=== PATIENT | female | born 1955 | race Hispanic/Latino ===

== ENCOUNTER 2024-11-01 10:12 | Emergency (ER) | payer OTHER ==
[~2024-11-01] VITALS: Ht 157.5 cm; Wt 76.7 kg
[2024-11-01 10:52] LABS: BASOPHILS # (AUTO) 0.06 K/uL (0.00-0.20); BASOPHILS % (AUTO) 0.6 % (0.0-5.0); EOSINOPHILS # (AUTO) 0.06 K/uL (0.00-0.70); EOSINOPHILS % (AUTO) 0.6 % (0.0-8.0); HEMATOCRIT 43.9 % (36-48); IMMATURE GRANULOCYTE ABSOLUTE 0.02 K/uL (0-1); LYMPHOCYTES # (AUTO) 2.9 K/uL (1.0-4.8); LYMPHOCYTES % (AUTO) 29.7 % (21.0-51.0); MEAN CORPUSCULAR HEMOGLOBIN 30.1 pg (27.0-33.0); MEAN CORPUSCULAR VOLUME 91.1 fL (79-99); MONOCYTES # (AUTO) 0.5 K/uL (0.1-1.0); MONOCYTES % (AUTO) 4.8 % (3.0-13.0); NEUTROPHILS # (AUTO) 6.1 K/uL (1.8-7.7); NEUTROPHILS % (AUTO) 64.1 % (40.0-77.0); PLATELET COUNT (AUTO) 238 K/uL (130-400); RED BLOOD CELL COUNT(AUTO) 4.82 MIL/uL (4.00-5.50); RED CELL DISTRIBUTION WIDTH 13.2 % (11.0-15.5); WHITE BLOOD COUNT (AUTO) 9.6 K/uL (4.8-10.8)
--- NOTE | 2024-11-01 11:06 | HMCIMG ---
Exam Type: CHEST 1VW Clinical Information: CP Comparison: None Findings: The lungs are clear of infiltrates. The heart is normal in size. The bony and soft tissue structures of the chest are unremarkable. Impression: Clear lungs.
[2024-11-01 11:07] LABS: CREATININE 0.7 mg/dL (0.5-1.0); MAGNESIUM 2.2 mg/dL (1.80-2.40)
[2024-11-01 11:09] LABS: INR 0.98 (0.85-1.15); PROTHROMBIN TIME 10.4 SEC (9.6-11.6)
[2024-11-01 11:10] LABS: PARTIAL THROMBOPLASTIN TIME 26.8 SEC (26.3-35.5)
[2024-11-01] MEDS: LACTATED RINGERS 1000ML 1,000 ML IV ONE (11:12)
[2024-11-01] MEDS: DiphenhydrAMINE HCL 50 MG/ML VIAL IV ONE (11:24)
[2024-11-01] MEDS: 0.9%NACL 1000ML 1,002 ML IV ONE (11:24)
[2024-11-01] MEDS: PROCHLORPERAZINE 10MG/2ML INJ IV ONE (11:24)
--- NOTE | 2024-11-01 11:30 | ERN ---
General Chief Complaint: Hypertension Stated Complaint: HTN Time Seen by MD: 10:16 Source: patient History of Present Illness Initial Comments PATIENT IS A 69-YEAR-OLD FEMALE COMING IN TO BE EVALUATED FOR HEADACHE. PER PATIENT SHE HAS BEEN HAVING ELEVATED BLOOD PRESSURE FOR ONE WEEK. PATIENT ALSO STATES THAT SHE HAS A HISTORY OF SINUSITIS AND FREQUENTLY PRESENTS WITH FACIAL D ISCOMFORT. PRIOR TO THIS SHE HAD NEVER HAD ELEVATED BLOOD PRESSURE IN HIS WHY SHE WAS HERE CONCERNED. Allergies: Coded Allergies: No Known Drug Allergies (Unverified Allergy, Unknown, 11/01/24) Past Medical History Past Medical History: No Pertinent History Past Surgical History: Tonsillectomy, Other Surgical History Other: TUBAL LIGATION ROS Dictation CONSTITUTIONAL: NO CHILLS, NO FEVER, NO WEAKNESS, NO DIAPHORESIS, NO MALAISE. HEAD/FACE: NO SIGNS OF TRAUMA. EENT: NO EYE PAIN, NO BLURRED VISION, NO TEARING, NO DOUBLE VISION, NO EAR PAIN, NO EAR DISCHARGE, NO NOSE PAIN, NO NASAL CONGESTION, NO THROAT PAIN, NO THROAT SWELLING, NO MOUTH PAIN. RESPIRATORY: NO COUGH, NO ORTHOPNEA, NO SOB, NO STRIDOR, NO WHEEZING. CARDIOVASCULAR: NO CHEST PAIN, NO EDEMA, NO PALPITATIONS, NO SYNCOPE. GASTROINTESTINAL/ABDOMINAL: NO ABDOMINAL PAIN, NO CONSTIPATION, NO DIARRHEA, NO NAUSEA, NO VOMITING. GENITOURINARY: NO ABNORMAL DISCHARGE, NO DYSURIA, NO FREQUENT URINATION, NO HEMATURIA. NO COMPLAINTS OF PAIN IN THE GENITALS. MUSCULOSKELETAL: NO BACK PAIN, NO GOUT, NO JOINT PAIN, NO JOINT SWELLING, NO MUSCLE PAIN, NO MUSCLE STIFFNESS, NO NECK PAIN. INTEGUMENTARY: NO CHANGE IN COLOR, NO CHANGE IN HAIR/NAILS, NO DRYNESS, NO LESION, NO LUMPS, NO RASH. NEUROLOGICAL/PSYCH: NO ANXIETY, NOT DEPRESSED, NO EMOTIONAL PROBLEM, NO HEADACHE, NO NUMBNESS, NO PRE-EXISTING DEFICIT, NO HISTORY OF SEIZURES, NO TREMORS, NO WEAKNESS. HEMATOLOGIC/LYMPHATIC: NOT ANEMIC, NO HISTORY OF BLOOD CLOTS, NO APPARENT BLEEDING, NO BRUISING, GLANDS NOT SWOLLEN. ALL SYSTEMS NEGATIVE, EXCEPT NOTED. Physical Exam Physical Exam Dictation VITAL SIGNS: REVIEWED. GENERAL APPEARANCE: ALERT, ORIENTED X3, NO ACUTE DISTRESS, OBESE. HEAD AND FACE: NON-TRAUMATIC. EYES: PERRL, PINK CONJUNCTIVAS, EYELID NO TRAUMA, ANTERIOR CHAMBER CLEAR. EARS: PINNAS INTACT AND NO SIGNS OF TRAUMA OR ERYTHEMA. EAR CANALS CLEAR AND NO DISCHARGE. TMS NO ERYTHEMA. NOSE: NO DISCHARGE, NO BLEEDING. OROPHARYNX: MOUTH NORMAL, TEETH NO CARIES, TONGUE PINK. PHARYNX CLEAR, NO ERYTHEMA. TONSILS NO EXUDATES, NO ABSCESSES NOTED. MUCOUS MEMBRANE MOIST. NECK: SUPPLE, NON-TENDER, NO THYROMEGALY, NO MASSES, NO JVD, NO BRUITS. BREAST: DEFERRED. CHEST: NO TENDERNESS, NO CREPITUS, NO PARADOXICAL MOVEMENT, NO RETRACTIONS. LUNGS: CLEAR, WELL-VENTILATED, SYMMETRIC, NO RALES, NO WHEEZING, NO RHONCHI, NO STRIDOR, GOOD BREATH SOUNDS BILATERALLY. HEART: REGULAR RATE, REGULAR RHYTHM, NO MURMUR, NO GALLOPS. VASCULAR: NO PERIPHERAL EDEMA. ABDOMEN: SOFT, POSITIVE BOWEL SOUNDS, NONDISTENDED, NO GUARDING, NONTENDER, NO REBOUND, NO MASSES NO HEPATOMEGALY, NO SPLENOMEGALY, NO ECHEVERRIA'S SIGN, NO HERNIAS. RECTAL: DEFERRED. GENITAL: DEFERRED. NEUROLOGICAL: NORMAL SPEECH, GROSS MOTOR FUNCTION INTACT, GROSS SENSORY FUNCTION INTACT. MUSCULOSKELETAL: NECK NONTENDER, FULL RANGE OF MOTION, BACK NONTENDER, FULL RANGE OF MOTION. EXTREMITIES: NONTENDER, FULL RANGE OF MOTION. SKIN: COLOR PINK, DRY, NO TURGOR, NO RASH, NO LACERATIONS, NO ABRASIONS, NO CONTUSIONS. LYMPHATICS: DEFERRED. Results Laboratory and Microbiology Lab and Micro Result Laboratory Tests Test 11/01/24 10:46 White Blood Count 9.6 K/uL (4.8-10.8) Red Blood Count 4.82 MIL/uL (4.00-5.50) Hemoglobin 14.5 g/dL (12.0-16.0) Hematocrit 43.9 % (36-48) Mean Corpuscular Volume 91.1 fL (79-99) Mean Corpuscular Hemoglobin 30.1 pg (27.0-33.0) Mean Corpuscular Hemoglobin Concent 33.0 g/dL (32.0-36.0) Red Cell Distribution Width 13.2 % (11.0-15.5) Platelet Count 238 K/uL (130-400) Mean Platelet Volume 10.7 fL (7.5-10.5) H Immature Granulocyte % (Auto) 0.2 % (0-1) Neutrophils (%) (Auto) 64.1 % (40.0-77.0) Lymphocytes (%) (Auto) 29.7 % (21.0-51.0) Monocytes (%) (Auto) 4.8 % (3.0-13.0) Eosinophils (%) (Auto) 0.6 % (0.0-8.0) Basophils (%) (Auto) 0.6 % (0.0-5.0) Neutrophils # (Auto) 6.1 K/uL (1.8-7.7) Lymphocytes # (Auto) 2.9 K/uL (1.0-4.8) Monocytes # (Auto) 0.5 K/uL (0.1-1.0) Eosinophils # (Auto) 0.06 K/uL (0.00-0.70) Basophils # (Auto) 0.06 K/uL (0.00-0.20) Absolute Immature Granulocyte (auto 0.02 K/uL (0-1) Nucleated Red Blood Cells 0.0 % (0.0-0.19) Prothrombin Time 10.4 SEC (9.6-11.6) Prothromb Time International Ratio 0.98 (0.85-1.15) Activated Partial Thromboplast Time 26.8 SEC (26.3-35.5) Sodium Level 141 mmol/L (136-145) Potassium Level 4.0 mmol/L (3.5-5.1) Chloride Level 104 mmol/L (101-111) Carbon Dioxide Level 28 mmol/L (21-32) Blood Urea Nitrogen 13 mg/dL (7-18) Creatinine 0.7 mg/dL (0.5-1.0) Glomerular Filtration Rate Calc 94 mL/min (>90) Random Glucose 107 mg/dL (70-105) H Total Calcium 9.2 mg/dL (8.5-10.1) Magnesium Level 2.20 mg/dL (1.80-2.40) Total Creatine Kinase 85 U/L (21-232) Troponin I High Sensitivity 6 ng/L (4-50) B-Type Natriuretic Peptide 42 pg/mL (0-100) Labs Reviewed?: Yes EKG/XRAY/US/CT/MRI EKG Comment 11/01/2024 TIME 10:01 A.M. VENTRICULAR RATE 61 SINUS RHYTHM IN [address] WAVE ELEVATION OR DEPRESSION X-RAY Comment [facility] [address] [place] [id number] IMAGING REPORT Signed PATIENT: SLY VUONG MR#: [id number] : 1955 SEX: F AGE: 69 LOCATION: EDH ORDER 1024 STATUS: REG ER REPORT#: [id number] SERVICE 1023 REASON: CP ORDERING PHYSICIAN: CHERYL HERNANDEZ MD PROCEDURE: CXR1VW - CHEST 1VW Exam Type: CHEST 1VW Clinical Information: CP Comparison: None Findings: The lungs are clear of infiltrates. The heart is normal in size. The bony and soft tissue structures of the chest are unremarkable. Impression: Clear lungs. DICTATED BY: ANDREA DOWNING MD DATE: 11/01/24 110 ELECTRONICALLY SIGNED BY: ANDREA DOWNING MD DATE: 11/01/[address] Scan Comment [place] [address] [id number] IMAGING REPORT Signed PATIENT: SLY VUONG MR#: [id number] : 1955 SEX: F AGE: 69 LOCATION: ED ORDER 1156 STATUS: REG ER REPORT#: [id number] SERVICE 1151 REASON: HEADACHE ORDERING PHYSICIAN: CHERYL HERNANDEZ MD PROCEDURE: HEAD WO - CT HEAD/BRAIN W/O CONTRAST Exam Type: CT HEAD/BRAIN W/O CONTRAST Clinical Information: HEADACHE Comparison: None CT Dose Index (CTDI): 57.33 mGy Dose Length Product (DLP): 956.79 total mGy-cm Findings: The examination is unremarkable. Hurt-white matter junction is preserved. No intra or extra axial lesions or fluid collections are seen. Specifically, hurt and white matter are normal in signal characteristics with normal caliber of ventricles and periventricular cisterns with no evidence of intra or or extra-axial hemorrhage, lacunar infarct, or major territorial infarct, mass, or other abnormality. There are no infarcts. There are no hemorrhages. Periventricular white matter locations are preserved. The orbital contents and structures of the posterior fossa are intact. Impression: Normal CT of the head. This study was performed using dose reduction techniques to include automated exposure control and/or adjustment of the mA and/or kV according to patient size. DICTATED BY: ANDREA DOWNING MD DATE: 11/01/24 1231 ELECTRONICALLY SIGNED BY: ANDREA DOWNING MD DATE: 11/01/[address] [facility] MDM: DIFFERENTIAL DIAGNOSIS: TENSION HEADACHE, SINUSITIS, RATIONALE: TESTS CONSIDERED AND ORDERED SECONDARY TO SHARED DECISION MAKING INCLUDE: PREVIOUS OUTSIDE RECORDS REVIEWED: OLD ER VISITS. RISK OF COMPLICATION AND/OR MORBIDITY OR MORTALITY OF PATIENT MANAGEMENT: NONE PATIENT IS A 69-YEAR-OLD FEMALE COMING IN TO BE EVALUATED FOR ELEVATED BLOOD PRESSURE. LABORATORY WORKUP NEGATIVE FOR ACUTE FINDINGS. PATIENT ALSO STATED THAT SHE HAS BEEN HAVING HEADACHES CT WAS PERFORMED DUE TO THE INCREASED SEVERITY OF THE HEADACHE. THIS DID NOT DISCLOSE ACUTE FINDINGS. PATIENT WILL BE DISCHARGED IN STABLE CONDITION WITH A DIAGNOSIS OF TENSION HEADACHE WITH SINUSITIS. DID ADVISED HER APPROPRIATE FOLLOW UP WITH PCP IN 1-2 DAYS. ED Course Orders Procedure Category Date Status Time Cbc With Differential LAB 11/01/24 Complete 10:23 Prothrombin Time With LAB 11/01/24 Complete INR 10:23 B-Type Natriuretic LAB 11/01/24 Complete Peptide 10:23 Chest 1vw RAD 11/01/24 Resulted 10:23 12 Lead Ekg Tracing- EKG 11/01/24 Complete Technical 10:23 Lactated Ringers PHA 11/01/24 Complete 1000ml (Lactated 10:30 Magnesium LAB 11/01/24 Complete 10:23 Creatine Kinase, Total LAB 11/01/24 Complete 10:23 Troponin I High LAB 11/01/24 Complete Sensitivity 10:23 Urinalysis Profile LAB 11/01/24 Logged 10:23 Partial LAB 11/01/24 Complete Thromboplastin Time 10:23 Basic Metabolic Panel LAB 11/01/24 Complete 10:23 Diphenhydramine Hcl PHA 11/01/24 Complete (Benadryl Inj) 11:00 Prochlorperazine PHA 11/01/24 Complete 10mg/2ml Inj 11:00 0.9%Nacl 1000ml (Ns PHA 11/01/24 In Process 1000ml) 11:00 Clonidine Hcl 0.2 Mg PHA 11/01/24 Complete Tablet (Catapres 0. 12:00 Ct Head/Brain W/O CT 11/01/24 Resulted Contrast 11:54 Current Medications Medications (Trade) Dose Ordered Sig/Jose Route PRN Reason Start Time Stop Time Status Last Admin Dose Admin Clonidine HCl (CATApres 0.2 MG TAB) 0.2 mg ONCE ONCE PO 11/01/24 12:00 11/01/24 12:01 DC 11/01/24 12:22 Diphenhydramine HCl (BENAdryl INJ) 25 mg ONCE ONCE IV 11/01/24 11:00 11/01/24 11:13 DC 11/01/24 11:24 Lactated Ringer's 1,000 ml @ 0 mls/hr ONCE ONCE IV 11/01/24 10:30 11/01/24 10:31 DC 11/01/24 11:12 Prochlorperazine Edisylate (Compazine 10mg/ 2ml Inj) 10 mg ONCE ONCE IV 11/01/24 11:00 11/01/24 11:13 DC 11/01/24 11:24 Sodium Chloride 1,002 ml @ 334 mls/hr ONCE ONCE IV 11/01/24 11:00 11/01/24 13:59 11/01/24 11:24 Vital Signs Date Time Temp Pulse Resp B/P (MAP) Pulse Ox O2 Delivery O2 Flow Rate FiO2 11/01/24 12:22 86 196/78 11/01/24 12:00 98.2 62 12 171/74 97 Room Air* 0 11/01/24 10:48 97.9 64 16 198/73 100 Room Air* 0 11/01/24 10:16 97.9 73 16 209/88 98 Room Air DX & DISP Disposition: Discharge Departure Impression: Primary Impression: Tension headache Additional Impressions: Sinusitis, Elevated blood pressure reading Condition: Stable Scripts Clonidine HCl (Clonidine HCl) 0.1 Mg Tablet 0.1 MG PO BID PRN for IF SBP GREATER THAN 180 for 5 Days, #10 TAB Prov: CHERYL HERNANDEZ MD 11/01/24 Diclofenac Sodium (Voltaren Arthritis Pain) 1 % Gel..gram. 4 GM TP BID for 7 Days, #1 TUBE Prov: CHERYL HERNANDEZ MD 11/01/24 Additional Instructions: FOLLOW-UP WITH PRIMARY CARE PROVIDER IN 1 TO 2 DAYS. TAKE MEDICATIONS DIRECTED HERE IN THE EMERGENCY ROOM. OKAY TO CONTINUE HOME MEDICATIONS UNLESS OTHERWISE DISCUSSED DURING YOUR VISIT IN THE EMERGENCY ROOM TODAY. RETURN TO YOUR NEAREST EMERGENCY ROOM IF SYMPTOMS WORSEN OR IF THERE IS NO IMPROVEMENT. CALL 911 IF YOU NEED IMMEDIATE ASSISTANCE. TAKE TYLENOL [id number] NEEDED AND IF NO CONTRAINDICATIONS ARE PRESENT. INCREASE ORAL HYDRATION. A WOUND CULTURE OR URINE CULTURE WAS ORDERED HERE IN THE EMERGENCY ROOM DEPARTMENT PLEASE FOLLOW-UP WITH PRIMARY CARE PROVIDER AND ADVISE THEM TO GET REPEAT PORTS FROM OUR FACILITY. IF YOU HAD ANY ROBIN WRAP/SPLINTS THAT WERE APPLIED HERE, PLEASE DO NOT REMOVE THEM UNTIL YOU SEE YOUR PRIMARY CARE OR SPECIALTY. REFERRALS: Referrals: SELF,REFERRAL (PCP) JIMENA HURTADO MD Time of Disposition: 13:14 CHERYL HERNANDEZ MD Nov 01, 2024 11:30
[2024-11-01 11:33] LABS: B-TYPE NATRIURETIC PEPTIDE 42 pg/mL (0-100)
--- NOTE | 2024-11-01 11:42 | EKG ---
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
[2024-11-01 12:00] VITALS: RESP 12; TEMP 98.2; O2SAT 97
--- NOTE | 2024-11-01 12:00 | NUR ---
PLACED 20G RIGHT ANTECUBITAL
--- NOTE | 2024-11-01 12:00 | NUR ---
COLLECTED BLOOD SAMPLES.
[2024-11-01 12:22] VITALS: BP 196/78; PULSE 86
[2024-11-01] MEDS: cloNIDine HCL 0.2 MG TABLET PO ONE (12:22)
--- NOTE | 2024-11-01 12:33 | HMCIMG ---
Exam Type: CT HEAD/BRAIN W/O CONTRAST Clinical Information: HEADACHE Comparison: None CT Dose Index (CTDI): 57.33 mGy Dose Length Product (DLP): 956.79 total mGy-cm Findings: The examination is unremarkable. Hurt-white matter junction is preserved. No intra or extra axial lesions or fluid collections are seen. Specifically, hurt and white matter are normal in signal characteristics with normal caliber of ventricles and periventricular cisterns with no evidence of intra or or extra-axial hemorrhage, lacunar infarct, or major territorial infarct, mass, or other abnormality. There are no infarcts. There are no hemorrhages. Periventricular white matter locations are preserved. The orbital contents and structures of the posterior fossa are intact. Impression: Normal CT of the head. This study was performed using dose reduction techniques to include automated exposure control and/or adjustment of the mA and/or kV according to patient size.
[2024-11-01] MEDS ORDERED: CLON0.1T PO (13:15)
[2024-11-01] MEDS ORDERED: DICL20GE TP (13:15)
--- NOTE | 2024-11-01 13:25 | NUR ---
DISCONTINUED IV ACCESS. DISCHARGE ORDERS IN PLACE. PATIENT VERBALIZED NO PAIN AT THE MOMENT. DISCHARGE INSTRUCTION GIVEN TO PATIENT AND ADULT DAUGHTER. PATIENT VERBALIZED UNDERSTANDING.
--- NOTE | 2024-11-01 13:32 | NUR ---
BLOOD PRESSURE 117/50. PATIENT READY TO BE DISCHARGED.
== END 2024-11-01 13:30 | disposition home or self-care (01) ==
LOC: EDH 10:12
DX: G44.209 Tension-type headache, unspecified, not intractable (principal); J32.9 Chronic sinusitis, unspecified; R03.0 Elevated blood-pressure reading, without diagnosis of hypertension; Z90.89 Acquired absence of other organs; Z98.51 Tubal ligation status
CPT/HCPCS: 36415; 70450; 71045; 80048; 82550; 83735; 83880; 84484; 85025; 85610; 85730; 93005; 96361; 96374; 96375; 99285; J0780; J1200; J7030; J7120